=== PATIENT | female | born 1955 | race Caucasian/White ===

== ENCOUNTER 2017-01-16 08:13 | Day surgery (SDC) | payer OTHER ==
[~2017-01-16] VITALS: Ht 160 cm; Wt 63.0 kg
[2017-01-16] MEDS ORDERED: FENTANYL PF 250 MCG/5ML ONE (08:23)
[2017-01-16] MEDS ORDERED: MIDAZOLAM 1 MG/ML, 2ML ONE (08:23)
[2017-01-16 08:39] VITALS: BP 111/74
[2017-01-16] MEDS ORDERED: MEPERIDINE/PF 25MG/0.5ML IVPush PRN (09:00)
[2017-01-16] MEDS ORDERED: ACETAMINOPHEN 325 MG TABLET PO PRN (09:00)
[2017-01-16] MEDS ORDERED: morphine SULFATE 10 MG/ML, 1ML IV PRN (09:00)
[2017-01-16] MEDS ORDERED: LACTATED RINGERS 1,000 ML IV SCH (09:00)
[2017-01-16] MEDS ORDERED: OXYcodone 5 MG/5 ML ORAL.SOL UDC PO PRN (09:00)
[2017-01-16] MEDS ORDERED: PROMETHAZINE 25 MG/ML, 1ML IV PRN (09:00)
[2017-01-16] MEDS ORDERED: FENTANYL PF 100 MCG/2ML IV PRN (09:00)
[2017-01-16] MEDS ORDERED: LABETALOL 5MG/ML, 20ML IV PRN (09:00)
[2017-01-16] MEDS ORDERED: ONDANSETRON 2MG/ML, 2ML IVPush PRN (09:00)
[2017-01-16] MEDS ORDERED: LIPA1CAP45 PO (09:04)
[2017-01-16] MEDS ORDERED: FLUO40CA9 PO (09:04)
[2017-01-16] MEDS ORDERED: NITR100C56 PO (09:04)
[2017-01-16] MEDS ORDERED: PROPOFOL 10 MG/ML, 20ML ONE (09:12)
[2017-01-16] MEDS ORDERED: ETHYL ALCOHOL 98%, 5 ML ONE (10:37)
[2017-01-16] MEDS ORDERED: TRIAMCINOLONE ACETONIDE 40 MG/ML, 1ML ONE (10:37)
[2017-01-16] MEDS ORDERED: BUPIVACAINE/PF 0.25% ONE (10:37)
== END 2017-01-16 12:40 ==
LOC: OUT 08:13
PROVIDERS: ATTEND Internal Medicine Gastroenterology
DX: K21.0 Gastro-esophageal reflux disease with esophagitis (principal); K22.10 Ulcer of esophagus without bleeding; K58.9 Irritable bowel syndrome, unspecified; Z86.010 Personal history of colon polyps; Z86.73 Personal history of transient ischemic attack (TIA), and cerebral infarction without residual deficits; Z90.710 Acquired absence of both cervix and uterus; Z98.0 Intestinal bypass and anastomosis status; Z90.49 Acquired absence of other specified parts of digestive tract; Z93.3 Colostomy status; Z88.1 Allergy status to other antibiotic agents; Z88.8 Allergy status to other drugs, medicaments and biological substances
CPT/HCPCS: 43238; 43239; 88305; 93005; J2250; J2704; J3010; J3301; J3490; J7120

== ENCOUNTER → 2017-04-08 | Outpatient (CLI) | payer OTHER ==
[~2017-04-08] MED LIST: FLUO40CA9 PO; LIPA1CAP45 PO; NITR100C56 PO
== END | disposition home or self-care (01) ==
LOC: CFH 13:17
PROVIDERS: ATTEND Physician Assistant
DX: M51.26 Other intervertebral disc displacement, lumbar region (principal); M48.061 Spinal stenosis, lumbar region without neurogenic claudication; M48.07 Spinal stenosis, lumbosacral region; M43.16 Spondylolisthesis, lumbar region; M47.897 Other spondylosis, lumbosacral region; M12.88 Other specific arthropathies, not elsewhere classified, other specified site
CPT/HCPCS: 72148